=== PATIENT | female | born 1975 | race Caucasian/White ===

== ENCOUNTER → 2016-12-09 | Day surgery (SDC) | payer BC ==
[~2016-12-09] MED LIST: BACITRACIN OINT 1 EACH PACKET TOPICAL ONE; LIDOCAINE 1% INJ 10MG/ML (20 ML MDV) ONE
--- NOTE | 2016-12-09 09:40 | PCN ---
DATE OF PROCEDURE: Patient is a 41-year-old white female with a mammographic abnormality in the left breast. The patient was taken to the stereotactic core room. The area of concern was localized. 1% lidocaine was used to anesthetize the area of concern after the breast had been prepped in a sterile fashion. Needle was driven to the correct coordinates. Multiple core biopsies were obtained. A marking clip was left behind. Patient tolerated the procedure in stable condition.
--- NOTE | 2016-12-09 16:48 | MM ---
EXAMINATION TYPE: MG stereo VAD BX LT DATE OF EXAM: 12/09/2016 COMPARISON: 10/13/2016 and 11/15/2016 CLINICAL HISTORY: 41-year-old female with left breast microcalcifications referred for biopsy. TECHNIQUE: Stereotactic guided core biopsy of left breast. FINDINGS: The procedure of stereotactic guided core biopsy was explained to the patient. Benefits, alternatives, and risks were discussed. An informed consent was then obtained. [facility]. [facility] pathway was an inferior approach. I performed the localization, then surgeon, Dr. Corey Santos performed the remainder of the procedure. A vacuum assisted biopsy gun was used to obtain multiple core samples. The patient tolerated the procedure well without any immediate complication. The patient was kept in the radiology department for short stay after the procedure and then discharged home in stable condition. Targeted calcifications are identified in specimen mammogram. Post biopsy mammogram shows the clip to appear in satisfactory position relative to the targeted area of concern on the preprocedure images. IMPRESSION: SUCCESSFUL, UNCOMPLICATED STEREOTACTIC GUIDED CORE BIOPSY OF LEFT BREAST MICROCALCIFICATIONS; FULL PATHOLOGY RESULTS TO FOLLOW. 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 Recommendation Follow up mammogram of the left breast in 6 months. ACE
--- NOTE | 2016-12-13 13:02 | USB ---
Reason for exam: clinical finding. History: Family history of breast cancer in mother at age 40. Physical Findings: Nurse did not find any significant physical abnormalities on exam. US Breast BILAT Right breast ultrasound includes all four quadrants, the retroareolar region and axilla. Finding demonstrate no cystic or solid lesion seen. Left breast ultrasound includes all four quadrants, the retroareolar region and axilla. Finding demonstrate no cystic or solid lesion seen. These results were verbally communicated with the patient and result sheet given to the patient on 12/09/16. ASSESSMENT: Suspicious, BI-RAD 4 RECOMMENDATION: Stereotactic core biopsy of the left breast. (For left breast calcifications)
== END ==
LOC: RADMAMWWP 07:00
PROVIDERS: ATTEND Surgery
DX: D24.2 Benign neoplasm of left breast (principal); N60.32 Fibrosclerosis of left breast; R92.0 Mammographic microcalcification found on diagnostic imaging of breast; Z80.3 Family history of malignant neoplasm of breast
CPT/HCPCS: 88305; 19081; 76641; A4648; J2001